=== PATIENT | male | born 1950 | race Caucasian/White ===

== ENCOUNTER → 2023-11-26 | Outpatient (CLI) | payer MEDICARE, SELFPAY ==
--- NOTE | 2023-11-26 12:20 | RAD_ITS ---
STUDY: X-RAY - ABDOMEN/PELVIS REASON FOR EXAM: Male, 73 years old. Kidney stone. TECHNIQUE: Single AP view of the abdomen / pelvis on 3 images. COMPARISON: None. FINDINGS: Normal visualized lung bases. Normal bowel gas pattern with air seen to the rectosigmoid. Moderate amount of feces in the colon. Punctate calcifications projected over the lower pole of the right kidney. No calcifications projected over the left kidney. Normal soft tissue structures. Normal visualized osseous structures. RAD/Abdomen Single View IMPRESSION: Punctate calcifications projected over the lower pole of the right kidney. No other abnormality identified. Electronically Signed: Marlo Monae MD at 9:37 EDT ,
== END | disposition home or self-care (01) ==
LOC: LAB 11:54
PROVIDERS: PCP Family Medicine; Referring Provider Nurse Practitioner; Visit Provider Nurse Practitioner
DX: N20.0 Calculus of kidney (principal)
CPT/HCPCS: 74018

== ENCOUNTER → 2024-11-26 | Outpatient (CLI) | payer MEDICARE, SELFPAY ==
[2024-11-26 17:55] LABS: PSA,Total - Annual Screen 0.12 ng/mL (0.02-4.00)
== END | disposition home or self-care (01) ==
LOC: LAB 14:57
PROVIDERS: PCP Family Medicine; Referring Provider Urology; Visit Provider Urology
DX: Z12.5 Encounter for screening for malignant neoplasm of prostate (principal)
CPT/HCPCS: 36415; 84153; G0103

== ENCOUNTER → 2025-03-12 | Outpatient (CLI) | payer MEDICARE, BC, SELFPAY ==
--- NOTE | 2025-03-12 12:54 | CT_ITS ---
PROCEDURE: LIMITED CHEST CT CARDIAC ONLY 03/12/2025 REASON FOR EXAM: WILSON/CP TECHNIQUE: LIMITED CHEST CT CARDIAC ONLY CONTRAST: Isovue-300 VOLUME: 100 mL One or more dose reduction techniques were used (e.g., Automated exposure control, adjustment of the mA and/or kV according to patient size, use of iterative reconstruction technique). RADIATION DOSE SUMMARY: CTDlvol: 65.3 mGy DLP: 2258.11 mGycm COMPARISON: None FINDINGS: Mild atherosclerotic calcification of the aortic arch. Coronary artery calcification. Increased linear markings at the lung bases suggestive of bibasilar scarring. Fatty infiltration of the liver. CT/Limited Chest CT Cardiac Only IMPRESSION: Coronary artery calcification. Reading Location: [place] [id number]
[2025-03-12 13:17] VITALS: BP 136/69; PULSE 53; RESP 18; TEMP 37; O2SAT 95; BMI 35.9
[2025-03-12 13:32] VITALS: BP 136/69; PULSE 53
[2025-03-12] MEDS: Nitroglycerin SL (ED/IMG/CATH) 0.4 MG TABLET SL (13:32)
[2025-03-12 13:42] VITALS: BP 136/54; PULSE 59; RESP 18; O2SAT 92
--- NOTE | 2025-03-12 18:25 | CCTA.WCONT ---
CCTA w/Cont Coronary Arteries Date of Study:: 03/12/25 Dyspnea on exertion and chest pain Coronary Calcium Scoring: High-resolution Computed Tomographic imaging of the chest was performed on [03/12/2025], with particular attention paid to the coronary arteries. Intravenous contrast agent was administered per protocol and images reconstructed and displayed. LEFT MAIN CORONARY ARTERY: Arises from the left main coronary cusp and appears to be free of significant atherosclerotic plaquing and bifurcates the left anterior descending artery and left circumflex artery [] LEFT ANTERIOR DESCENDING CORONARY ARTERY: Arises from the left main coronary artery. There is moderate proximal calcification noted with moderate stenosis and moderate to severe mid LAD stenosis with at least moderate stenosis present. The extent of the calcification makes it difficult to quantify exactly how much stenosis there is. There is mild diffuse distal disease noted. [] LEFT CIRCUMFLEX CORONARY ARTERY: Nondominant vessel with moderate plaque disease noted which appears to be nonobstructing. [] RIGHT CORONARY ARTERY: Dominant right coronary artery with mild eccentric plaque noted scattered in the proximal and midportion. Nonocclusive disease present. [] THORACIC AORTA: [] PULMONARY ARTERY: [] LEFT ATRIUM/APPENDAGE: [] MITRAL VALVE: [] AORTIC VALVE: [] LEFT VENTRICLE: [] CORONARY CALCIUM SCORE: Not performed [] Calcium Scoring Interpretation: Different methods to categorize the overall amount of coronary plaque. Overall amount CAC SIS Visual of coronary plaque P1 Mild -100 <2 1-2 vessels with mild amount of plaque P2 Moderate 101-300 3-4 1-2 vessels with moderate amount, 3 vessels with mild amount of plaque P3 Severe 301-999 5-7 3 vessels with moderate amount, 1 vessel with severe amount of plaque P4 Extensive >1000 >8 2-3 vessels with severe amount of plaque Conclusion: Moderate disease atherosclerotic plaquing noted with 1 vessel with severe amount of plaque in the LAD present and at least moderate stenosis noted in this vessel.
== END | disposition home or self-care (01) ==
LOC: CT 12:51
PROVIDERS: PCP Family Medicine; Referring Provider Nurse Practitioner Family; Visit Provider Nurse Practitioner Family
DX: R06.02 Shortness of breath (principal); R07.9 Chest pain, unspecified
CPT/HCPCS: 75574; 76380; Q9967